=== PATIENT | female | born 1960 | race Caucasian/White ===

== ENCOUNTER 2024-12-16 12:10 | Inpatient (IN) | payer OTHER ==
[~2024-12-16] VITALS: Ht 167.6 cm; Wt 69.0 kg
[2024-12-16 12:35] LABS: COVID AG,FIA SOURCE NASAL SWAB
[2024-12-16 12:44] LABS: PLATELET COUNT (AUTO) 111 K/uL (150-450); RED BLOOD CELL COUNT(AUTO) 4.07 MIL/uL (4.00-5.20); RED CELL DISTRIBUTION WIDTH 18.5 % (11.5-14.5); WHITE BLOOD COUNT (AUTO) 4.5 K/uL (4.5-11.0)
[2024-12-16 12:53] LABS: CALCIUM, TOTAL 8.7 mg/dL (8.8-10.5); CREATININE 0.84 mg/dL (0.60-1.30); GLOMERULAR FILTR. RATE CALC > 60 mL/min (>60); GLUCOSE,RANDOM 68 mg/dL (70-110); SODIUM SERUM 137 mmol/L (136-145); UREA NITROGEN, BLOOD 26 mg/dL (7-18)
[2024-12-16] MEDS ORDERED: LEVO125 PO (12:59)
[2024-12-16] MEDS ORDERED: APIX5TAB PO (12:59)
[2024-12-16] MEDS ORDERED: SERT-158 PO (12:59)
[2024-12-16] MEDS ORDERED: ALEN70TA65 PO (12:59)
[2024-12-16] MEDS ORDERED: ASPI81TA87 PO (12:59)
[2024-12-16] MEDS ORDERED: HYDR-5256 PO (12:59)
[2024-12-16] MEDS ORDERED: OMEP-148 PO (12:59)
[2024-12-16] MEDS ORDERED: NITR0.4T50 SL (12:59)
[2024-12-16] MEDS ORDERED: HYDR200T83 PO (12:59)
[2024-12-16] MEDS ORDERED: TOPI-258 PO (12:59)
[2024-12-16] MEDS ORDERED: FURO20TA5 PO (12:59)
[2024-12-16] MEDS ORDERED: LEVE750T4 PO (12:59)
[2024-12-16] MEDS ORDERED: MYCO250C27 PO (12:59)
[2024-12-16] MEDS ORDERED: GABA-1216 PO (12:59)
[2024-12-16] MEDS ORDERED: VENL-67 PO (12:59)
[2024-12-16 13:08] LABS: SARS-COV2 (COVID) ANTIGEN,FIA Negative (Negative)
[2024-12-16] MEDS: POTASSIUM CHLORIDE 20 MEQ ER TABLET PO ONE (13:11)
[2024-12-16] MEDS ORDERED: ZOLPIDEM TARTRATE 10 MG TABLET PO PRN (13:45)
[2024-12-16] MEDS: LORazepam 2 MG/ML VIAL IM ONE (13:49)
[2024-12-16] MEDS: DEXTROSE 50%-WATER 25 GM/50 ML SYRINGE IVP ONE (15:14)
[2024-12-16] MEDS ORDERED: ETOMIDATE 2 MG/ML 10 ML VIAL ONE (15:38)
[2024-12-16] MEDS ORDERED: ROCURONIUM BROMIDE 10 MG/ML 5 ML VIAL ONE (15:39)
[2024-12-16 16:00] VITALS: PULSE 100; RESP 24; O2SAT 89
[2024-12-16 16:08] LABS: FRACTIONATED INSPIRED OXYGEN 100.0 % (21-100.0); SOURCE, BLOOD GAS ARTERIAL; TEMPERATURE, FAHRENHEIT, BG 98.1 FAHREN (96.0-98.6)
[2024-12-16 16:09] LABS: RED BLOOD CELL COUNT(AUTO) 4.07 MIL/uL (4.00-5.20); RED CELL DISTRIBUTION WIDTH 18.9 % (11.5-14.5); WHITE BLOOD COUNT (AUTO) 4.3 K/uL (4.5-11.0)
[2024-12-16 16:10] LABS: PLATELET COUNT (AUTO) 93 K/uL (150-450)
[2024-12-16 16:15] LABS: APPEARANCE,URINE CLEAR (CLEAR); GLUCOSE, URINE (UA) NEGATIVE (NEGATIVE); LEUKOCYTE ESTERASE ,URINE MODERATE (NEGATIVE); NITRATE,URINE NEGATIVE (NEGATIVE); OCCULT BLOOD,URINE NEGATIVE (NEGATIVE); PH,URINE DRUG SCREEN 5.5 (5.0-8.0); SPECIFIC GRAVITIY, URINE 1.011 (1.003-1.030)
[2024-12-16 16:16] LABS: ABG BASE EXCESS -5.8 mmol/L (-2.0-3.0); ABG CARBOXYHEMOGLOBIN 0.2 % (0.5-1.5); ABG HCO3 20.3 mmol/L (21.0-28.0); ABG METHEMOGLOBIN 0.8 % (0.0-1.5); ABG OXYGEN CONTENT 16.8 mL/dL (15.0-23.0); ABG OXYGEN SATURATION 99.3 % (94.0-98.0); ABG OXYHEMOGLOBIN 98.3 % (94.0-98.0); ABG PCO2 34 mmHg (32.0-45.0); ABG PH 7.370 (7.350-7.450); ABG TOTAL HEMOGLOBIN 11.9 G/dL (12.0-16.0); PO2, ARTERIAL BG 158.8 mmHg (83.0-108.0)
[2024-12-16 16:17] LABS: ALLEN TEST, BLOOD GAS POS; O2 DEVICE,BLOOD GAS VENTILATOR (ROOM AIR); SITE, BLOOD GAS LFT RADIAL; VT, ABG 380 ml
[2024-12-16 16:17] LABS: CALCIUM, TOTAL 8.6 mg/dL (8.8-10.5); CREATININE 0.68 mg/dL (0.60-1.30); GLOMERULAR FILTR. RATE CALC > 60 mL/min (>60); GLUCOSE,RANDOM 145 mg/dL (70-110); SODIUM SERUM 135 mmol/L (136-145); UREA NITROGEN, BLOOD 28 mg/dL (7-18)
[2024-12-16 16:18] LABS: PATIENT RATE, BG 20.0 min.; PEEP,BG 5 cm H2O; SET RATE, BG 20.0 min.
[2024-12-16] MEDS ORDERED: IOHEXOL 350 MG/ML 100 ML VIAL ONE (16:19)
[2024-12-16] MEDS ORDERED: SODIUM CHLORIDE 0.9% 100 ML ONE (16:19)
[2024-12-16] MEDS ORDERED: 0.9% SODIUM CHLORIDE 10 ML SYRINGE IVP ONE (16:19)
[2024-12-16 16:20] VITALS: PULSE 100; RESP 20; O2SAT 92
[2024-12-16 16:24] LABS: PHOSPHORUS 4.5 mg/dL (2.5-4.9); TROPONIN I-HIGH SENSITIVITY 88 ng/L (<51)
[2024-12-16 16:25] LABS: ALCOHOL, URINE DRUG SCREEN POSITIVE (NEGATIVE); AMPHET/METH SCREEN,URINE NEGATIVE (NEGATIVE); BARBITURATE SCREEN, URINE NEGATIVE (NEGATIVE); CANNABINOID SCREEN,URINE NEGATIVE (NEGATIVE); COCAINE SCREEN,URINE NEGATIVE (NEGATIVE); METHADONE SCREEN, URINE NEGATIVE (NEGATIVE)
[2024-12-16 16:26] LABS: GLUCOMETER DEV NAME(LOC) ER.7; GLUCOSE,POINT OF CARE 98 MG/DL (70-110)
[2024-12-16 16:31] LABS: ASPARTATE AMINOTRANSFERASE 61.0 U/L (15-37); CREATINE KINASE, TOTAL ONLY 349.0 U/L (26-192); TOTAL PROTEIN, SERUM 7.4 g/dL (6.4-8.2)
[2024-12-16 17:01] LABS: SQUAMOUS EPITHELIAL CELL,UR Rare /LPF (None Seen)
[2024-12-16] MEDS ORDERED: ALBUTEROL SULFATE 2.5 MG/0.5 ML NEB SOLUTION NEB PRN (17:15)
[2024-12-16] MEDS ORDERED: MAGNESIUM OXIDE 400 MG TABLET PO PRN (17:15)
[2024-12-16] MEDS ORDERED: MAGNESIUM SULFATE 4 GM/WATER 100 ML IV PRN (17:15)
[2024-12-16] MEDS ORDERED: MAGNESIUM SULFATE 2 GM/WATER 50 ML IV PRN (17:15)
[2024-12-16] MEDS ORDERED: ONDANSETRON HCL 4 MG/2 ML VIAL IVP PRN (17:15)
[2024-12-16] MEDS ORDERED: IPRATROPIUM BROMIDE 0.5 MG/2.5 ML NEB SOLUTION NEB PRN (17:15)
[2024-12-16] MEDS ORDERED: 0.9% SODIUM CHLORIDE 10 ML SYRINGE IVP PRN (17:30)
[2024-12-16 17:40] VITALS: PULSE 90; RESP 26; O2SAT 89
[2024-12-16 17:48] LABS: TROPONIN I-HIGH SENSITIVITY 75 ng/L (<51)
[2024-12-16 17:49] LABS: GLUCOSE,RANDOM 139 mg/dL (70-110); LACTATE DEHYDROGENASE 432 U/L (81-234)
[2024-12-16 17:50] LABS: LACTIC ACID 4.1 mmol/L (0.4-2.0)
[2024-12-16] MEDS: FentaNYL CIT 1000MCG/0.9% NACL 100 ML IV PRN (18:00)
[2024-12-16] MEDS: PROPOFOL 1000 MG/ISO-OSM 100 ML IV PRN (18:00)
[2024-12-16] MEDS: RINGERS LACTATED IV ONE (18:14)
[2024-12-16] MEDS: PIPERACILLIN/TAZO 3.375 GM/D5W 50 ML IV ONE (18:16)
[2024-12-16] MEDS: VANCOMYCIN 1.25 GM/WATER(PEG) 250 ML IV ONE (18:20)
[2024-12-16 18:31] LABS: ABG BASE EXCESS -1.2 mmol/L (-2.0-3.0); ABG CARBOXYHEMOGLOBIN 0.1 % (0.5-1.5); ABG HCO3 23.6 mmol/L (21.0-28.0); ABG METHEMOGLOBIN 1.0 % (0.0-1.5); ABG OXYGEN CONTENT 16.1 mL/dL (15.0-23.0); ABG OXYGEN SATURATION 99.7 % (94.0-98.0); ABG OXYHEMOGLOBIN 98.6 % (94.0-98.0); ABG PCO2 39 mmHg (32.0-45.0); ABG PH 7.396 (7.350-7.450); ABG TOTAL HEMOGLOBIN 11.3 G/dL (12.0-16.0); FRACTIONATED INSPIRED OXYGEN 100.0 % (21-100.0); PO2, ARTERIAL BG 204.6 mmHg (83.0-108.0); SOURCE, BLOOD GAS ARTERIAL; TEMPERATURE, FAHRENHEIT, BG 98.0 FAHREN (96.0-98.6)
[2024-12-16 18:52] LABS: ALLEN TEST, BLOOD GAS Positive; O2 DEVICE,BLOOD GAS VENTILATOR (ROOM AIR); PEEP,BG 8 cm H2O; SET RATE, BG 26.0 min.; SITE, BLOOD GAS RT RADIAL; VT, ABG 380 ml
[2024-12-16 18:53] LABS: PATIENT RATE, BG 26.0 min.
[2024-12-16 18:55] VITALS: PULSE 70; RESP 26; O2SAT 91
[2024-12-16] MEDS: SILDENAFIL CITRATE 20 MG TABLET NG SCH (20:05)
[2024-12-16] MEDS: CefTRIAXone 1 GM/DEXTROSE 50 ML IV SCH (20:05)
[2024-12-16] MEDS: DOCUSATE SODIUM 100 MG CAPSULE PO SCH (20:12)
[2024-12-16 20:22] LABS: ABG BASE EXCESS -3.1 mmol/L (-2.0-3.0); ABG CARBOXYHEMOGLOBIN 0.3 % (0.5-1.5); ABG HCO3 22.4 mmol/L (21.0-28.0); ABG METHEMOGLOBIN 0.9 % (0.0-1.5); ABG OXYGEN CONTENT 16.5 mL/dL (15.0-23.0); ABG OXYGEN SATURATION 99.7 % (94.0-98.0); ABG OXYHEMOGLOBIN 98.5 % (94.0-98.0); ABG PCO2 33 mmHg (32.0-45.0); ABG PH 7.431 (7.350-7.450); ABG TOTAL HEMOGLOBIN 11.1 G/dL (12.0-16.0); FRACTIONATED INSPIRED OXYGEN 100.0 % (21-100.0); SOURCE, BLOOD GAS ARTERIAL; TEMPERATURE, FAHRENHEIT, BG 97.7 FAHREN (96.0-98.6)
[2024-12-16 20:23] LABS: ALLEN TEST, BLOOD GAS Positive; O2 DEVICE,BLOOD GAS VENTILATOR (ROOM AIR); PATIENT RATE, BG 26.0 min.; PEEP,BG 10 cm H2O; PO2, ARTERIAL BG 396.7 mmHg (83.0-108.0); SET RATE, BG 26.0 min.; SITE, BLOOD GAS LFT RADIAL; SPONTANEOUS VT, BG 394 ml; VT, ABG 380 ml
[2024-12-16] MEDS: DOXYCYCLINE HYCLATE 100 MG in DEXTROSE 5%-WATER 100 ML IV SCH (20:28)
[2024-12-16] MEDS: POTASSIUM CHLORIDE 20 MEQ ER TABLET PO PRN (20:28)
[2024-12-16] MEDS: CHLORHEXIDINE GLUCONATE 2% TOWELETTE [2'S/6'S] TP SCH (22:03)
[2024-12-16 22:10] VITALS: PULSE 70; RESP 26; O2SAT 96
[2024-12-16] MEDS ORDERED: NITROGLYCERIN 0.4 MG SUBLINGUAL TABLET #25 SL PRN (22:45)
[2024-12-16] MEDS ORDERED: [UNRECOGNIZED DRUG - OTHER] GT SCH (22:45)
[2024-12-16 22:50] LABS: ABG BASE EXCESS -2.2 mmol/L (-2.0-3.0); ABG CARBOXYHEMOGLOBIN 0.2 % (0.5-1.5); ABG HCO3 23.1 mmol/L (21.0-28.0); ABG METHEMOGLOBIN 0.0 % (0.0-1.5); ABG OXYGEN CONTENT 15.2 mL/dL (15.0-23.0); ABG OXYGEN SATURATION 96.6 % (94.0-98.0); ABG OXYHEMOGLOBIN 96.4 % (94.0-98.0); ABG PCO2 33 mmHg (32.0-45.0); ABG PH 7.444 (7.350-7.450); ABG TOTAL HEMOGLOBIN 11.1 G/dL (12.0-16.0); ALLEN TEST, BLOOD GAS Positive; FRACTIONATED INSPIRED OXYGEN 80.0 % (21-100.0); O2 DEVICE,BLOOD GAS VENTILATOR (ROOM AIR); PATIENT RATE, BG 26.0 min.; PEEP,BG 5 cm H2O; PO2, ARTERIAL BG 92.0 mmHg (83.0-108.0); SET RATE, BG 26.0 min.; SITE, BLOOD GAS RT RADIAL; SOURCE, BLOOD GAS ARTERIAL; TEMPERATURE, FAHRENHEIT, BG 97.7 FAHREN (96.0-98.6); VT, ABG 380 ml
[2024-12-17] VITALS (14 sets, daily range): BP systolic 89–132; BP diastolic 59–82; PULSE 70; RESP 26; TEMP 97.4–99.3; O2SAT 80–100
[2024-12-17] MEDS: HEPARIN SODIUM,PORCINE 5,000 UNITS/ML VIAL SQ SCH (00:59)
[2024-12-17] MEDS ORDERED: SODIUM CHLORIDE 0.9% 250 ML IV ONE ×2 (02:02→18:38)
[2024-12-17] MEDS: POTASSIUM CHL 10 MEQ/WATER 50 ML IV PRN (02:03)
[2024-12-17 06:59] LABS: PLATELET COUNT (AUTO) 96 K/uL (150-450); RED BLOOD CELL COUNT(AUTO) 3.89 MIL/uL (4.00-5.20); RED CELL DISTRIBUTION WIDTH 19.0 % (11.5-14.5); WHITE BLOOD COUNT (AUTO) 5.3 K/uL (4.5-11.0)
[2024-12-17] MEDS: LEVOTHYROXINE SODIUM 125 MCG TABLET GT SCH (07:01)
[2024-12-17] MEDS: ASPIRIN 81 MG DR TABLET GT SCH (08:09)
[2024-12-17] MEDS: TOPIRAMATE 100 MG TABLET PO SCH (08:10)
[2024-12-17] MEDS: HYDROXYCHLOROQUINE SULFATE 200 MG TABLET GT SCH (08:10)
[2024-12-17] MEDS: APIXABAN 5 MG TABLET GT SCH (08:10)
[2024-12-17] MEDS: GABAPENTIN 100 MG CAPSULE GT SCH (08:10)
[2024-12-17] MEDS: FUROSEMIDE 20 MG TABLET GT SCH (08:11)
[2024-12-17] MEDS: ETHYL ALCOHOL 62% ANTISEPTIC NASAL SANITIZER 0.6 ML AMPUL NASAL SCH (08:12)
[2024-12-17 08:19] LABS: ASPARTATE AMINOTRANSFERASE 54 U/L (15-37); CALCIUM, TOTAL 8.4 mg/dL (8.8-10.5); CHOL/HDL RATIO 1.7 (3.9-5.7); CREATININE 0.55 mg/dL (0.60-1.30); GLOMERULAR FILTR. RATE CALC > 60 mL/min (>60); LDL CHOL (CALC.) 54 mg/dL (0-130); SODIUM SERUM 136 mmol/L (136-145); TOTAL PROTEIN, SERUM 6.7 g/dL (6.4-8.2); UREA NITROGEN, BLOOD 22 mg/dL (7-18)
[2024-12-17 08:27] LABS: GLUCOSE,RANDOM 70 mg/dL (70-110)
[2024-12-17] MEDS: ALBUMIN HUMAN 25%-50GM/200ML 200 ML IV ONE (11:14)
[2024-12-17] MEDS: PERFLUTREN PROTEIN-A MICROSPHERES 0.22 MG/ML 3 ML VIAL IVP ONE (11:14)
[2024-12-17] MEDS: LevETIRAcetam 100 MG/ML 5 ML SOLUTION UDCUP GT SCH (11:20)
[2024-12-17] MEDS: PROPOFOL 1000 MG/ISO-OSM 100 ML IV PRN (12:29)
[2024-12-17 14:46] LABS: GLUCOMETER DEV NAME(LOC) ICUN.6; GLUCOSE,POINT OF CARE 84 MG/DL (70-110)
[2024-12-17 17:24] LABS: ABG BASE EXCESS -1.5 mmol/L (-2.0-3.0); ABG CARBOXYHEMOGLOBIN 0.2 % (0.5-1.5); ABG HCO3 23.4 mmol/L (21.0-28.0); ABG METHEMOGLOBIN 0.0 % (0.0-1.5); ABG OXYGEN CONTENT 15.4 mL/dL (15.0-23.0); ABG OXYGEN SATURATION 98.3 % (94.0-98.0); ABG OXYHEMOGLOBIN 98.1 % (94.0-98.0); ABG PCO2 40 mmHg (32.0-45.0); ABG PH 7.389 (7.350-7.450); ABG TOTAL HEMOGLOBIN 11.0 G/dL (12.0-16.0); FRACTIONATED INSPIRED OXYGEN 80.0 % (21-100.0); PO2, ARTERIAL BG 125.0 mmHg (83.0-108.0); SOURCE, BLOOD GAS ARTERIAL; TEMPERATURE, FAHRENHEIT, BG 99.3 FAHREN (96.0-98.6)
[2024-12-17 17:25] LABS: ABG A-A DIFF O2 402.9 mmHg (10-20.0); O2 DEVICE,BLOOD GAS VENTILATOR (ROOM AIR); SITE, BLOOD GAS RT BRACHIAL
[2024-12-17 17:26] LABS: PATIENT RATE, BG 26.0 min.; PEEP,BG 8 cm H2O; SET RATE, BG 26.0 min.; VT, ABG 380 ml
[2024-12-17 19:21] LABS: GLUCOMETER DEV NAME(LOC) ICU.S7; GLUCOSE,POINT OF CARE 84 MG/DL (70-110)
[2024-12-17] MEDS: DOCUSATE SODIUM 100 MG/10 ML LIQUID UDCUP NG SCH (20:13)
[2024-12-18] VITALS (15 sets, daily range): BP systolic 88–107; BP diastolic 58–74; PULSE 67–72; RESP 16–26; TEMP 98.1–99.3; O2SAT 90–99
[2024-12-18 06:56] LABS: PLATELET COUNT (AUTO) 92 K/uL (150-450); RED BLOOD CELL COUNT(AUTO) 3.59 MIL/uL (4.00-5.20); RED CELL DISTRIBUTION WIDTH 19.0 % (11.5-14.5); WHITE BLOOD COUNT (AUTO) 4.1 K/uL (4.5-11.0)
[2024-12-18 07:27] LABS: CALCIUM, TOTAL 8.4 mg/dL (8.8-10.5); CREATININE 0.76 mg/dL (0.60-1.30); GLOMERULAR FILTR. RATE CALC > 60 mL/min (>60); GLUCOSE,RANDOM 82 mg/dL (70-110); SODIUM SERUM 136 mmol/L (136-145); UREA NITROGEN, BLOOD 17 mg/dL (7-18)
[2024-12-18] MEDS: NOREPINEPHRINE 8 MG/0.9 % NACL 250 ML IV PRN (07:56)
[2024-12-18 16:00] LABS: ABG BASE EXCESS -3.6 mmol/L (-2.0-3.0); ABG CARBOXYHEMOGLOBIN 0.3 % (0.5-1.5); ABG HCO3 21.5 mmol/L (21.0-28.0); ABG METHEMOGLOBIN 0.3 % (0.0-1.5); ABG OXYGEN CONTENT 15.0 mL/dL (15.0-23.0); ABG OXYGEN SATURATION 93.6 % (94.0-98.0); ABG OXYHEMOGLOBIN 93.0 % (94.0-98.0); ABG PCO2 42 mmHg (32.0-45.0); ABG PH 7.338 (7.350-7.450); ABG TOTAL HEMOGLOBIN 11.4 G/dL (12.0-16.0); FRACTIONATED INSPIRED OXYGEN 50.0 % (21-100.0); PO2, ARTERIAL BG 75.3 mmHg (83.0-108.0); SOURCE, BLOOD GAS ARTERIAL; TEMPERATURE, FAHRENHEIT, BG 98.2 FAHREN (96.0-98.6)
[2024-12-18 16:01] LABS: ABG A-A DIFF O2 234.0 mmHg (10-20.0); ALLEN TEST, BLOOD GAS Positive; SITE, BLOOD GAS RT RADIAL
[2024-12-18 16:02] LABS: O2 DEVICE,BLOOD GAS VENTILATOR (ROOM AIR); PATIENT RATE, BG 12.0 min.; PEEP,BG 5 cm H2O; PRESSURE SUPPORT, BG 5 cm H2O; VENT MODE, BG CPAP (ROOM AIR)
[2024-12-18 16:03] LABS: SPONTANEOUS VT, BG 467 ml
[2024-12-18] MEDS: PANTOPRAZOLE SODIUM 40 MG/VIAL IVP SCH (18:58)
[2024-12-18] MEDS ORDERED: SODIUM CHLORIDE 0.9% 250 ML IV ONE (23:38)
[2024-12-19] VITALS (10 sets, daily range): BP systolic 97–114; BP diastolic 61–72; PULSE 66–72; RESP 13–40; TEMP 97.4–99.9; O2SAT 82–96
[2024-12-19 06:15] LABS: PLATELET COUNT (AUTO) 104 K/uL (150-450); RED BLOOD CELL COUNT(AUTO) 3.55 MIL/uL (4.00-5.20); RED CELL DISTRIBUTION WIDTH 19.1 % (11.5-14.5); WHITE BLOOD COUNT (AUTO) 5.6 K/uL (4.5-11.0)
[2024-12-19 06:25] LABS: CALCIUM, TOTAL 8.4 mg/dL (8.8-10.5); CREATININE 0.55 mg/dL (0.60-1.30); GLOMERULAR FILTR. RATE CALC > 60 mL/min (>60); GLUCOSE,RANDOM 88 mg/dL (70-110); SODIUM SERUM 137 mmol/L (136-145); UREA NITROGEN, BLOOD 16 mg/dL (7-18)
[2024-12-19 08:23] LABS: BAND NEUTROPHILS % (MANUAL) 5 % (0-5); LYMPHOCYTES % (MANUAL) 34 % (22-44); MONOCYTES % (MANUAL) 3 % (2-9); SEGMENTED NEUTROPHILS % 58 % (40-70)
[2024-12-19 08:28] LABS: RBC MORPHOLOGY COMMENT NORMAL RBC MORPH
[2024-12-19 10:22] LABS: ABG A-A DIFF O2 210.7 mmHg (10-20.0); ABG BASE EXCESS -5.2 mmol/L (-2.0-3.0); ABG CARBOXYHEMOGLOBIN 0.3 % (0.5-1.5); ABG HCO3 20.3 mmol/L (21.0-28.0); ABG METHEMOGLOBIN 0.0 % (0.0-1.5); ABG OXYGEN CONTENT 14.9 mL/dL (15.0-23.0); ABG OXYGEN SATURATION 96.3 % (94.0-98.0); ABG OXYHEMOGLOBIN 96.0 % (94.0-98.0); ABG PCO2 44 mmHg (32.0-45.0); ABG PH 7.302 (7.350-7.450); ABG TOTAL HEMOGLOBIN 10.9 G/dL (12.0-16.0); ALLEN TEST, BLOOD GAS Positive; FRACTIONATED INSPIRED OXYGEN 50.0 % (21-100.0); O2 DEVICE,BLOOD GAS VENTILATOR (ROOM AIR); PO2, ARTERIAL BG 96.7 mmHg (83.0-108.0); SITE, BLOOD GAS RT RADIAL; SOURCE, BLOOD GAS ARTERIAL; TEMPERATURE, FAHRENHEIT, BG 98.2 FAHREN (96.0-98.6)
[2024-12-19 10:23] LABS: PATIENT RATE, BG 16.0 min.; PEEP,BG 5 cm H2O; PRESSURE SUPPORT, BG 5 cm H2O; SPONTANEOUS VT, BG 609 ml; VENT MODE, BG Press. Support Vent. (ROOM AIR)
[2024-12-19] MEDS: SODIUM BICARBONATE [ADULT] 8.4% 50 MEQ/50 ML SYRINGE IVP ONE (12:52)
[2024-12-19] MEDS ORDERED: SODIUM CHLORIDE 0.9% 250 ML IV ONE (20:07)
[2024-12-19] MEDS: ACETAMINOPHEN 325 MG TABLET PO PRN (20:11)
[2024-12-20] VITALS: BP 98/68; PULSE 70; RESP 20; TEMP 98.9; O2SAT 89
[2024-12-20 04:00] VITALS: BP 149/58; PULSE 70; RESP 20; TEMP 99; O2SAT 89
[2024-12-20 05:50] LABS: PLATELET COUNT (AUTO) 92 K/uL (150-450); RED BLOOD CELL COUNT(AUTO) 3.42 MIL/uL (4.00-5.20); RED CELL DISTRIBUTION WIDTH 19.0 % (11.5-14.5); WHITE BLOOD COUNT (AUTO) 4.2 K/uL (4.5-11.0)
[2024-12-20 06:14] LABS: ASPARTATE AMINOTRANSFERASE 43 U/L (15-37); CALCIUM, TOTAL 8.2 mg/dL (8.8-10.5); CREATININE 0.58 mg/dL (0.60-1.30); GLOMERULAR FILTR. RATE CALC > 60 mL/min (>60); GLUCOSE,RANDOM 83 mg/dL (70-110); SODIUM SERUM 134 mmol/L (136-145); TOTAL PROTEIN, SERUM 6.3 g/dL (6.4-8.2); UREA NITROGEN, BLOOD 19 mg/dL (7-18)
[2024-12-20 08:00] VITALS: BP 100/60; PULSE 70; RESP 12; TEMP 99; O2SAT 90
[2024-12-20] MEDS ORDERED: DOCUSATE SODIUM 100 MG/10 ML LIQUID UDCUP PO SCH (09:00)
[2024-12-20] MEDS: DOCUSATE SODIUM 100 MG CAPSULE PO SCH (10:11)
[2024-12-20 12:00] VITALS: BP 96/65; PULSE 70; RESP 14; TEMP 99.1; O2SAT 98
[2024-12-20 16:00] VITALS: BP 107/63; PULSE 70; RESP 13; TEMP 98.4; O2SAT 100
[2024-12-20 20:00] VITALS: BP 105/75; PULSE 72; RESP 20; TEMP 98.9; O2SAT 100
[2024-12-20] MEDS: LITHIUM CARBONATE 300 MG CAPSULE PO SCH (20:20)
[2024-12-21] VITALS: BP 109/76; PULSE 71; RESP 19; TEMP 98.8; O2SAT 100
[2024-12-21 04:00] VITALS: BP 106/78; PULSE 74; RESP 19; TEMP 98.8; O2SAT 98
[2024-12-21 06:31] LABS: PLATELET COUNT (AUTO) 108 K/uL (150-450); RED BLOOD CELL COUNT(AUTO) 3.64 MIL/uL (4.00-5.20); RED CELL DISTRIBUTION WIDTH 19.0 % (11.5-14.5); WHITE BLOOD COUNT (AUTO) 5.7 K/uL (4.5-11.0)
[2024-12-21 06:49] LABS: ASPARTATE AMINOTRANSFERASE 48 U/L (15-37); CALCIUM, TOTAL 8.4 mg/dL (8.8-10.5); CREATININE 0.64 mg/dL (0.60-1.30); GLOMERULAR FILTR. RATE CALC > 60 mL/min (>60); GLUCOSE,RANDOM 103 mg/dL (70-110); SODIUM SERUM 133 mmol/L (136-145); TOTAL PROTEIN, SERUM 6.5 g/dL (6.4-8.2); UREA NITROGEN, BLOOD 20 mg/dL (7-18)
[2024-12-21 08:00] VITALS: BP 117/75; PULSE 71; RESP 17; TEMP 98.6
[2024-12-21 11:30] LABS: ABG BASE EXCESS -3.2 mmol/L (-2.0-3.0); ABG CARBOXYHEMOGLOBIN 0.1 % (0.5-1.5); ABG HCO3 22.3 mmol/L (21.0-28.0); ABG METHEMOGLOBIN 0.3 % (0.0-1.5); ABG OXYGEN CONTENT 15.5 mL/dL (15.0-23.0); ABG OXYGEN SATURATION 99.1 % (94.0-98.0); ABG OXYHEMOGLOBIN 98.7 % (94.0-98.0); ABG PCO2 34 mmHg (32.0-45.0); ABG PH 7.421 (7.350-7.450); ABG TOTAL HEMOGLOBIN 10.9 G/dL (12.0-16.0); FRACTIONATED INSPIRED OXYGEN 60.0 % (21-100.0); PO2, ARTERIAL BG 154.5 mmHg (83.0-108.0); SOURCE, BLOOD GAS ARTERIAL; TEMPERATURE, FAHRENHEIT, BG 97.6 FAHREN (96.0-98.6)
[2024-12-21 11:31] LABS: ABG A-A DIFF O2 237.3 mmHg (10-20.0); ALLEN TEST, BLOOD GAS Positive; FLOW, BLOOD GAS 10.00 L/min (0.00-15.00); O2 DEVICE,BLOOD GAS OXYMIZER (ROOM AIR); PATIENT RATE, BG 15.0 min.; SITE, BLOOD GAS LFT RADIAL
[2024-12-21 12:00] VITALS: BP 124/91; PULSE 75; RESP 18; TEMP 97.6
[2024-12-21 16:00] VITALS: BP 140/74; PULSE 72; RESP 14; TEMP 98
[2024-12-21] MEDS: FUROSEMIDE 20 MG/2 ML VIAL IVP ONE (18:57)
[2024-12-21 20:00] VITALS: BP 134/89; PULSE 75; RESP 19; TEMP 97.8
[2024-12-22] VITALS (7 sets, daily range): BP systolic 97–132; BP diastolic 59–89; PULSE 71–92; RESP 13–24; TEMP 97–98.6; O2SAT 88–98
[2024-12-22 05:48] LABS: CALCIUM, TOTAL 8.6 mg/dL (8.8-10.5); CREATININE 0.43 mg/dL (0.60-1.30); GLOMERULAR FILTR. RATE CALC > 60 mL/min (>60); GLUCOSE,RANDOM 85 mg/dL (70-110); SODIUM SERUM 134 mmol/L (136-145); UREA NITROGEN, BLOOD 20 mg/dL (7-18)
[2024-12-22 05:50] LABS: RED BLOOD CELL COUNT(AUTO) 3.51 MIL/uL (4.00-5.20); RED CELL DISTRIBUTION WIDTH 19.0 % (11.5-14.5); WHITE BLOOD COUNT (AUTO) 5.2 K/uL (4.5-11.0)
[2024-12-22 07:03] LABS: PLATELET COUNT (AUTO) 71 K/uL (150-450)
[2024-12-22] MEDS: FUROSEMIDE 20 MG/2 ML VIAL IVP SCH (08:41)
[2024-12-23 04:38] VITALS: BP 106/64; PULSE 73; RESP 18; TEMP 97.5; O2SAT 90
[2024-12-23] MEDS: ALENDRONATE SODIUM 70 MG TABLET GT SCH (05:49)
[2024-12-23 07:31] VITALS: BP 100/63; PULSE 70; RESP 18; TEMP 97.6; O2SAT 96
[2024-12-23] MEDS ORDERED: SODIUM CHLORIDE 0.9% 250 ML IV ONE (10:36)
[2024-12-23 12:19] VITALS: BP 104/69; PULSE 70; RESP 18; TEMP 97.6; O2SAT 86
[2024-12-23 12:44] VITALS: O2SAT 95
[2024-12-23 16:37] VITALS: BP 106/67; PULSE 70; RESP 19; TEMP 97.6; O2SAT 96
[2024-12-23 20:00] VITALS: BP 102/80; PULSE 87; RESP 20; TEMP 98.4; O2SAT 96
[2024-12-24] VITALS (10 sets, daily range): BP systolic 103–124; BP diastolic 57–82; PULSE 70–90; RESP 18–20; TEMP 97.7–98.6; O2SAT 94–100
[2024-12-24 07:22] LABS: PLATELET COUNT (AUTO) 139 K/uL (150-450); RED BLOOD CELL COUNT(AUTO) 3.94 MIL/uL (4.00-5.20); RED CELL DISTRIBUTION WIDTH 19.0 % (11.5-14.5); WHITE BLOOD COUNT (AUTO) 6.0 K/uL (4.5-11.0)
[2024-12-24 07:32] LABS: CALCIUM, TOTAL 9.0 mg/dL (8.8-10.5); CREATININE 0.89 mg/dL (0.60-1.30); GLOMERULAR FILTR. RATE CALC > 60 mL/min (>60); GLUCOSE,RANDOM 71 mg/dL (70-110); SODIUM SERUM 137 mmol/L (136-145); UREA NITROGEN, BLOOD 21 mg/dL (7-18)
[2024-12-24] MEDS: ALBUTEROL SULFATE 2.5 MG/0.5 ML NEB SOLUTION NEB SCH (14:31)
[2024-12-24] MEDS: IPRATROPIUM BROMIDE 0.5 MG/2.5 ML NEB SOLUTION NEB SCH (14:31)
[2024-12-25] VITALS (9 sets, daily range): BP systolic 92–132; BP diastolic 54–80; PULSE 69–86; RESP 18–20; TEMP 97.5–98.6; O2SAT 92–100
[2024-12-25 06:26] LABS: PLATELET COUNT (AUTO) 151 K/uL (150-450); RED BLOOD CELL COUNT(AUTO) 3.66 MIL/uL (4.00-5.20); RED CELL DISTRIBUTION WIDTH 18.6 % (11.5-14.5); WHITE BLOOD COUNT (AUTO) 6.3 K/uL (4.5-11.0)
[2024-12-25 06:41] LABS: CALCIUM, TOTAL 9.0 mg/dL (8.8-10.5); CREATININE 0.71 mg/dL (0.60-1.30); GLOMERULAR FILTR. RATE CALC > 60 mL/min (>60); GLUCOSE,RANDOM 83 mg/dL (70-110); SODIUM SERUM 138 mmol/L (136-145); UREA NITROGEN, BLOOD 23 mg/dL (7-18)
[2024-12-26] VITALS (7 sets, daily range): BP systolic 94–134; BP diastolic 55–90; PULSE 69–89; RESP 17–20; TEMP 97.7–98.8; O2SAT 93–97
[2024-12-26 06:31] LABS: PLATELET COUNT (AUTO) 190 K/uL (150-450); RED BLOOD CELL COUNT(AUTO) 4.09 MIL/uL (4.00-5.20); RED CELL DISTRIBUTION WIDTH 18.5 % (11.5-14.5); WHITE BLOOD COUNT (AUTO) 7.5 K/uL (4.5-11.0)
[2024-12-26 06:48] LABS: CREATININE 0.72 mg/dL (0.60-1.30); GLOMERULAR FILTR. RATE CALC > 60 mL/min (>60); GLUCOSE,RANDOM 91 mg/dL (70-110); SODIUM SERUM 137 mmol/L (136-145); UREA NITROGEN, BLOOD 27 mg/dL (7-18)
[2024-12-26 06:53] LABS: CALCIUM, TOTAL 9.0 mg/dL (8.8-10.5)
[2024-12-27 04:02] VITALS: BP 107/62; PULSE 73; RESP 18; TEMP 98.6; O2SAT 97
[2024-12-27 06:41] LABS: PLATELET COUNT (AUTO) 192 K/uL (150-450); RED BLOOD CELL COUNT(AUTO) 4.30 MIL/uL (4.00-5.20); RED CELL DISTRIBUTION WIDTH 18.8 % (11.5-14.5); WHITE BLOOD COUNT (AUTO) 5.9 K/uL (4.5-11.0)
[2024-12-27 06:53] LABS: CALCIUM, TOTAL 9.1 mg/dL (8.8-10.5); CREATININE 0.67 mg/dL (0.60-1.30); GLOMERULAR FILTR. RATE CALC > 60 mL/min (>60); GLUCOSE,RANDOM 104 mg/dL (70-110); SODIUM SERUM 137 mmol/L (136-145); UREA NITROGEN, BLOOD 21 mg/dL (7-18)
[2024-12-27 10:20] VITALS: BP 130/77; PULSE 76; RESP 18; TEMP 97.9; O2SAT 94
[2024-12-27] MEDS ORDERED: SILD20TA42 NG (11:21)
[2024-12-27] MEDS ORDERED: LITH300C3 PO (11:21)
[2024-12-27 12:11] VITALS: BP 113/76; PULSE 87; RESP 17; TEMP 98.4; O2SAT 99
== END 2024-12-27 16:20 | disposition home or self-care (01) | DRG 208 ==
LOC: EMS 12:10 → EDBEDREQ 16:27 → EDH 17:14 → ICU 21:07 → 5N 12-22 22:18
PROVIDERS: ADMIT Internal Medicine; ATTEND Internal Medicine
PROC: 5A1945Z Respiratory Ventilation, 24-96 Consecutive Hours (ICD-10-PCS; principal; 2024-12-16)
PROC: 0BH17EZ Insertion of Endotracheal Airway into Trachea, Via Natural or Artificial Opening (ICD-10-PCS; 2024-12-16)
DX: J96.21 Acute and chronic respiratory failure with hypoxia (principal); I50.33 Acute on chronic diastolic (congestive) heart failure; J18.9 Pneumonia, unspecified organism; J44.1 Chronic obstructive pulmonary disease with (acute) exacerbation; R45.851 Suicidal ideations; J98.11 Atelectasis; I48.92 Unspecified atrial flutter; D84.9 Immunodeficiency, unspecified; J44.0 Chronic obstructive pulmonary disease with (acute) lower respiratory infection; Z20.822 Contact with and (suspected) exposure to COVID-19; I11.0 Hypertensive heart disease with heart failure; I48.0 Paroxysmal atrial fibrillation; F31.9 Bipolar disorder, unspecified; F41.0 Panic disorder [episodic paroxysmal anxiety]; I27.81 Cor pulmonale (chronic); I50.811 Acute right heart failure; I95.1 Orthostatic hypotension; E03.9 Hypothyroidism, unspecified; G40.909 Epilepsy, unspecified, not intractable, without status epilepticus; I36.1 Nonrheumatic tricuspid (valve) insufficiency; F10.929 Alcohol use, unspecified with intoxication, unspecified; Y90.9 Presence of alcohol in blood, level not specified; I95.9 Hypotension, unspecified; Z53.20 Procedure and treatment not carried out because of patient's decision for unspecified reasons; Z79.899 Other long term (current) drug therapy; Z91.018 Allergy to other foods; Z86.73 Personal history of transient ischemic attack (TIA), and cerebral infarction without residual deficits; Z95.0 Presence of cardiac pacemaker; Z79.60 Long term (current) use of unspecified immunomodulators and immunosuppressants
CPT/HCPCS: 70450; 71045; 74174; 74175; 80048; 80053; 80061; 80076; 80178; 80307; 81001; 82040; 82550; 82805; 82947; 82962; 83036; 83605; 83615; 83735; 83880; 84100; 84132; 84145; 84436; 84439; 84484; 85025; 85730; 87040; 87081; 87086; 92610; 93005; 93306; 94002; 94003; 94640; 94760; 96372; 96374; 97116; 97163; 97530; 99285; G0480; J0696; J1644; J1938; J2060; J2470; J2543; J2704; J3010; J3480; J3490; J7050; J7060; J7120; P9046; 36415-L1; 36415-TC; J7613

== ENCOUNTER 2025-01-04 13:35 | Inpatient (IN) | payer OTHER ==
[~2025-01-04] VITALS: Ht 167.6 cm; Wt 73.6 kg
[~2025-01-04 13:35] MED LIST: ALEN70TA65 PO; APIX5TAB PO; ASPI81TA87 PO; FURO20TA5 PO; GABA-1216 PO; HYDR-5256 PO; HYDR200T83 PO; LEVE750T4 PO; LEVO125 PO; LITH300C3 PO; MYCO250C27 PO; NITR0.4T50 SL; OMEP-148 PO; SERT-158 PO; SILD20TA42 NG; TOPI-258 PO; VENL-67 PO
[2025-01-04 14:41] LABS: CALCIUM, TOTAL 7.9 mg/dL (8.8-10.5); CREATININE 0.56 mg/dL (0.60-1.30); GLOMERULAR FILTR. RATE CALC > 60 mL/min (>60); GLUCOSE,RANDOM 89 mg/dL (70-110); SODIUM SERUM 130 mmol/L (136-145); UREA NITROGEN, BLOOD 18 mg/dL (7-18)
[2025-01-04 14:48] LABS: PLATELET COUNT (AUTO) 179 K/uL (150-450); RED BLOOD CELL COUNT(AUTO) 4.19 MIL/uL (4.00-5.20); RED CELL DISTRIBUTION WIDTH 18.9 % (11.5-14.5); WHITE BLOOD COUNT (AUTO) 6.3 K/uL (4.5-11.0)
[2025-01-04 14:52] LABS: LACTIC ACID 1.8 mmol/L (0.4-2.0); TROPONIN I-HIGH SENSITIVITY 33 ng/L (<51)
[2025-01-04 15:11] LABS: ALCOHOL, BLOOD (SERUM) 107 mg/dL (0-10)
[2025-01-04] MEDS: POTASSIUM CHL 10 MEQ/WATER 50 ML IV ONE ×2 (15:16→15:26)
[2025-01-04] MEDS ORDERED: NOREPINEPHRINE 8 MG/0.9 % NACL 250 ML IV ONE (15:36)
[2025-01-04 15:41] LABS: ABG BASE EXCESS -6.5 mmol/L (-2.0-3.0); ABG CARBOXYHEMOGLOBIN 0.7 % (0.5-1.5); ABG HCO3 20.2 mmol/L (21.0-28.0); ABG METHEMOGLOBIN 1.0 % (0.0-1.5); ABG OXYGEN CONTENT 16.5 mL/dL (15.0-23.0); ABG OXYGEN SATURATION 99.9 % (94.0-98.0); ABG OXYHEMOGLOBIN 98.2 % (94.0-98.0); ABG PCO2 28 mmHg (32.0-45.0); ABG PH 7.425 (7.350-7.450); ABG TOTAL HEMOGLOBIN 11.6 G/dL (12.0-16.0); FRACTIONATED INSPIRED OXYGEN 90.0 % (21-100.0); PO2, ARTERIAL BG 215.6 mmHg (83.0-108.0); SOURCE, BLOOD GAS ARTERIAL; TEMPERATURE, FAHRENHEIT, BG 98.3 FAHREN (96.0-98.6)
[2025-01-04 15:42] LABS: ABG A-A DIFF O2 397.9 mmHg (10-20.0); ALLEN TEST, BLOOD GAS Positive; FLOW, BLOOD GAS 15.00 L/min (0.00-15.00); SITE, BLOOD GAS LFT RADIAL
[2025-01-04] MEDS: NOREPINEPHRINE 8 MG/0.9 % NACL 250 ML IV PRN (15:46)
[2025-01-04 15:47] LABS: APPEARANCE,URINE CLEAR (CLEAR); GLUCOSE, URINE (UA) NEGATIVE (NEGATIVE); LEUKOCYTE ESTERASE ,URINE NEGATIVE (NEGATIVE); NITRATE,URINE NEGATIVE (NEGATIVE); OCCULT BLOOD,URINE NEGATIVE (NEGATIVE); PH,URINE DRUG SCREEN 6.0 (5.0-8.0); SPECIFIC GRAVITIY, URINE 1.005 (1.003-1.030)
[2025-01-04 15:56] LABS: ALCOHOL, URINE DRUG SCREEN POSITIVE (NEGATIVE); AMPHET/METH SCREEN,URINE NEGATIVE (NEGATIVE); BARBITURATE SCREEN, URINE NEGATIVE (NEGATIVE); CANNABINOID SCREEN,URINE NEGATIVE (NEGATIVE); COCAINE SCREEN,URINE NEGATIVE (NEGATIVE); METHADONE SCREEN, URINE NEGATIVE (NEGATIVE)
[2025-01-04 16:03] LABS: SQUAMOUS EPITHELIAL CELL,UR Rare /LPF (None Seen)
[2025-01-04] MEDS ORDERED: BISACODYL 10 MG RECTAL RECTAL SUPPOSITORY PR PRN (16:15)
[2025-01-04] MEDS ORDERED: MAGNESIUM HYDROXIDE SUSPENSION 30 ML UDCUP PO PRN (16:15)
[2025-01-04] MEDS ORDERED: SODIUM BICARBONATE 50 MEQ/50 ML VIAL IVP ONE (17:15)
[2025-01-04] MEDS: POTASSIUM CHL 10 MEQ/WATER 50 ML IV PRN (17:40)
[2025-01-04 17:44] LABS: O2 DEVICE,BLOOD GAS NON REBREATHER (ROOM AIR)
[2025-01-04] MEDS: ONDANSETRON HCL 4 MG/2 ML VIAL IVP PRN (17:57)
[2025-01-04] MEDS: SODIUM BICARBONATE [ADULT] 8.4% 50 MEQ/50 ML SYRINGE IVP ONE (18:13)
[2025-01-04] MEDS: MAGNESIUM SULFATE 2 GM, MVI, ADULT NO.1 WITH VIT K 10 ML, THIAMINE 100 MG, FOLIC ACID 1... IV ONE (18:14)
[2025-01-04] MEDS: LORazepam 2 MG/ML VIAL IVP PRN (18:30)
[2025-01-04 18:57] LABS: CALCIUM, TOTAL 7.5 mg/dL (8.8-10.5); CREATININE 0.77 mg/dL (0.60-1.30); GLOMERULAR FILTR. RATE CALC > 60 mL/min (>60); GLUCOSE,RANDOM 73 mg/dL (70-110); SODIUM SERUM 132 mmol/L (136-145); UREA NITROGEN, BLOOD 20 mg/dL (7-18)
[2025-01-04 19:03] LABS: ASPARTATE AMINOTRANSFERASE 143.0 U/L (15-37); TOTAL PROTEIN, SERUM 6.8 g/dL (6.4-8.2)
[2025-01-04 20:08] LABS: ABG BASE EXCESS -11.3 mmol/L (-2.0-3.0); ABG CARBOXYHEMOGLOBIN 0.7 % (0.5-1.5); ABG HCO3 16.3 mmol/L (21.0-28.0); ABG METHEMOGLOBIN 0.1 % (0.0-1.5); ABG OXYGEN CONTENT 15.1 mL/dL (15.0-23.0); ABG OXYGEN SATURATION 90.7 % (94.0-98.0); ABG OXYHEMOGLOBIN 90.0 % (94.0-98.0); ABG PCO2 33 mmHg (32.0-45.0); ABG PH 7.288 (7.350-7.450); ABG TOTAL HEMOGLOBIN 11.9 G/dL (12.0-16.0); FRACTIONATED INSPIRED OXYGEN 36.0 % (21-100.0); PO2, ARTERIAL BG 72.9 mmHg (83.0-108.0); SOURCE, BLOOD GAS ARTERIAL; TEMPERATURE, FAHRENHEIT, BG 99.0 FAHREN (96.0-98.6)
[2025-01-04] MEDS: DOCUSATE SODIUM 100 MG CAPSULE PO SCH (20:08)
[2025-01-04 20:09] LABS: ABG A-A DIFF O2 145.7 mmHg (10-20.0); ALLEN TEST, BLOOD GAS Positive; SITE, BLOOD GAS RT RADIAL
[2025-01-04 20:10] LABS: FLOW, BLOOD GAS 4.00 L/min (0.00-15.00); O2 DEVICE,BLOOD GAS CANNULA (ROOM AIR)
[2025-01-04] MEDS: HEPARIN SODIUM,PORCINE 5,000 UNITS/ML VIAL SQ SCH (23:17)
[2025-01-04] MEDS: ACETAMINOPHEN 325 MG TABLET PO PRN (23:26)
[2025-01-05 06:02] LABS: PLATELET COUNT (AUTO) 137 K/uL (150-450); RED BLOOD CELL COUNT(AUTO) 4.07 MIL/uL (4.00-5.20); RED CELL DISTRIBUTION WIDTH 18.7 % (11.5-14.5); WHITE BLOOD COUNT (AUTO) 14.3 K/uL (4.5-11.0)
[2025-01-05 06:11] LABS: CALCIUM, TOTAL 7.0 mg/dL (8.8-10.5); CREATININE 1.16 mg/dL (0.60-1.30); GLOMERULAR FILTR. RATE CALC 47.0 mL/min (>60); GLUCOSE,RANDOM 115.0 mg/dL (70-110); SODIUM SERUM 132.0 mmol/L (136-145); UREA NITROGEN, BLOOD 27.0 mg/dL (7-18)
[2025-01-05] MEDS: LEVOTHYROXINE SODIUM 125 MCG TABLET PO SCH (07:30)
[2025-01-05 08:00] VITALS: BP 119/68; PULSE 70; PULSE 71; RESP 27; TEMP 99.6; O2SAT 98
[2025-01-05 08:41] VITALS: TEMP 99.6
[2025-01-05] MEDS: PANTOPRAZOLE SODIUM 40 MG DR TABLET PO SCH (09:24)
[2025-01-05 12:00] VITALS: BP 120/82; PULSE 70; RESP 20; TEMP 99.8; O2SAT 100
[2025-01-05 14:47] LABS: PLATELET COUNT (AUTO) 117 K/uL (150-450); RED BLOOD CELL COUNT(AUTO) 3.79 MIL/uL (4.00-5.20); RED CELL DISTRIBUTION WIDTH 18.6 % (11.5-14.5); WHITE BLOOD COUNT (AUTO) 11.7 K/uL (4.5-11.0)
[2025-01-05] MEDS: HYDROCODONE/ACETAMINOPHEN 5-325 MG TABLET PO PRN (14:52)
[2025-01-05 14:57] LABS: CALCIUM, TOTAL 6.8 mg/dL (8.8-10.5); CREATININE 0.97 mg/dL (0.60-1.30); GLOMERULAR FILTR. RATE CALC 58.0 mL/min (>60); GLUCOSE,RANDOM 122.0 mg/dL (70-110); SODIUM SERUM 138.0 mmol/L (136-145); UREA NITROGEN, BLOOD 29.0 mg/dL (7-18)
[2025-01-05 15:22] LABS: LACTIC ACID 2.2 mmol/L (0.4-2.0)
[2025-01-05 15:26] LABS: ABG BASE EXCESS -4.1 mmol/L (-2.0-3.0); ABG CARBOXYHEMOGLOBIN 0.2 % (0.5-1.5); ABG HCO3 21.4 mmol/L (21.0-28.0); ABG METHEMOGLOBIN 0.3 % (0.0-1.5); ABG OXYGEN CONTENT 13.1 mL/dL (15.0-23.0); ABG OXYGEN SATURATION 86.6 % (94.0-98.0); ABG OXYHEMOGLOBIN 86.2 % (94.0-98.0); ABG PCO2 34 mmHg (32.0-45.0); ABG PH 7.406 (7.350-7.450); ABG TOTAL HEMOGLOBIN 10.8 G/dL (12.0-16.0); FRACTIONATED INSPIRED OXYGEN 36.0 % (21-100.0); PO2, ARTERIAL BG 58.1 mmHg (83.0-108.0); SOURCE, BLOOD GAS ARTERIAL; TEMPERATURE, FAHRENHEIT, BG 99.9 FAHREN (96.0-98.6)
[2025-01-05 15:28] LABS: ABG A-A DIFF O2 159.1 mmHg (10-20.0); ALLEN TEST, BLOOD GAS Positive; SITE, BLOOD GAS RT RADIAL
[2025-01-05 15:29] LABS: FLOW, BLOOD GAS 4.00 L/min (0.00-15.00); O2 DEVICE,BLOOD GAS CANNULA (ROOM AIR)
[2025-01-05 16:00] VITALS: BP 100/63; PULSE 70; RESP 23; TEMP 99.7; O2SAT 98
[2025-01-05 20:00] VITALS: BP 122/76; PULSE 76; RESP 26; TEMP 99.2; O2SAT 95
[2025-01-06] VITALS (12 sets, daily range): BP systolic 95–138; BP diastolic 57–89; PULSE 70–91; RESP 19–32; TEMP 97.3–99.7; O2SAT 95–100
[2025-01-06 05:36] LABS: PLATELET COUNT (AUTO) 106 K/uL (150-450); RED BLOOD CELL COUNT(AUTO) 3.52 MIL/uL (4.00-5.20); RED CELL DISTRIBUTION WIDTH 18.7 % (11.5-14.5); WHITE BLOOD COUNT (AUTO) 12.1 K/uL (4.5-11.0)
[2025-01-06 05:41] LABS: CALCIUM, TOTAL 6.9 mg/dL (8.8-10.5); CREATININE 0.85 mg/dL (0.60-1.30); GLOMERULAR FILTR. RATE CALC > 60 mL/min (>60); GLUCOSE,RANDOM 102 mg/dL (70-110); SODIUM SERUM 139 mmol/L (136-145); UREA NITROGEN, BLOOD 35 mg/dL (7-18)
[2025-01-06] MEDS ORDERED: IPRATROPIUM BROMIDE 0.5 MG/2.5 ML NEB SOLUTION NEB PRN (07:30)
[2025-01-06] MEDS: FUROSEMIDE 20 MG TABLET PO SCH (07:44)
[2025-01-06] MEDS: POTASSIUM CHLORIDE 20 MEQ ER TABLET PO PRN (07:44)
[2025-01-06] MEDS: ASPIRIN 81 MG DR TABLET PO SCH (07:44)
[2025-01-06] MEDS: ETHYL ALCOHOL 62% ANTISEPTIC NASAL SANITIZER 0.6 ML AMPUL NASAL SCH (07:45)
[2025-01-06] MEDS: GuaiFENesin SR 600 MG ER TABLET PO SCH (08:21)
[2025-01-06] MEDS: GABAPENTIN 100 MG CAPSULE PO SCH (08:21)
[2025-01-06] MEDS: BENZONATATE 100 MG CAPSULE PO SCH (08:21)
[2025-01-06] MEDS: SILDENAFIL CITRATE 20 MG TABLET NG SCH (08:21)
[2025-01-06] MEDS: BUDESONIDE 0.5 MG/2 ML NEB SOLUTION NEB SCH (10:07)
[2025-01-07] VITALS (10 sets, daily range): BP systolic 101–119; BP diastolic 61–76; PULSE 69–76; RESP 18–23; TEMP 97.3–99.4; O2SAT 92–100
[2025-01-07 05:55] LABS: PLATELET COUNT (AUTO) 98 K/uL (150-450); RED BLOOD CELL COUNT(AUTO) 3.26 MIL/uL (4.00-5.20); RED CELL DISTRIBUTION WIDTH 18.9 % (11.5-14.5); WHITE BLOOD COUNT (AUTO) 8.9 K/uL (4.5-11.0)
[2025-01-07 06:04] LABS: CALCIUM, TOTAL 7.6 mg/dL (8.8-10.5); CREATININE 0.58 mg/dL (0.60-1.30); GLOMERULAR FILTR. RATE CALC > 60 mL/min (>60); GLUCOSE,RANDOM 95 mg/dL (70-110); SODIUM SERUM 138 mmol/L (136-145); UREA NITROGEN, BLOOD 27 mg/dL (7-18)
[2025-01-07] MEDS: MORPHINE SULFATE 4 MG/ML SYRINGE IVP PRN (14:14)
[2025-01-07] MEDS: *CLINICAL-LEVOFLOXACIN ORAL DOSING CLINICAL ONE (14:55)
[2025-01-07] MEDS ORDERED: SODIUM CHLORIDE 0.9% 250 ML IV ONE (15:08)
[2025-01-07] MEDS: LEVOFLOXACIN 750 MG/D5% WATER 150 ML IV SCH (15:10)
[2025-01-08] VITALS (10 sets, daily range): BP systolic 100–120; BP diastolic 62–99; PULSE 68–76; RESP 17–19; TEMP 97.5–98.3; O2SAT 93–99
[2025-01-08] MEDS: FUROSEMIDE 20 MG/2 ML VIAL IVP SCH (09:03)
[2025-01-09] VITALS (8 sets, daily range): BP systolic 106–114; BP diastolic 64–75; PULSE 70–80; RESP 18–20; TEMP 97.5–98.1; O2SAT 96–100
[2025-01-09 06:12] LABS: PLATELET COUNT (AUTO) 91 K/uL (150-450); RED BLOOD CELL COUNT(AUTO) 3.20 MIL/uL (4.00-5.20); RED CELL DISTRIBUTION WIDTH 19.0 % (11.5-14.5); WHITE BLOOD COUNT (AUTO) 6.8 K/uL (4.5-11.0)
[2025-01-09 06:59] LABS: CALCIUM, TOTAL 7.9 mg/dL (8.8-10.5); CREATININE 0.51 mg/dL (0.60-1.30); GLOMERULAR FILTR. RATE CALC > 60 mL/min (>60); GLUCOSE,RANDOM 101 mg/dL (70-110); SODIUM SERUM 131 mmol/L (136-145); UREA NITROGEN, BLOOD 14 mg/dL (7-18)
[2025-01-09] MEDS: DIVALPROEX SODIUM 500 MG DR TABLET PO SCH (11:30)
[2025-01-09] MEDS: POTASSIUM CHLORIDE 10% 40 MEQ/30 ML LIQUID UDCUP PO ONE (12:16)
[2025-01-09] MEDS: SERTRALINE HCL 50 MG TABLET PO SCH (12:17)
[2025-01-09] MEDS: PIPERACILLIN/TAZO 3.375 GM/D5W 50 ML IV SCH (12:17)
[2025-01-09] MEDS: VANCOMYCIN 1GM/WATER(PEG/NADA) 200 ML IV ONE (14:40)
[2025-01-09] MEDS: VANCOMYCIN 1GM/WATER(PEG/NADA) 200 ML IV SCH (20:17)
[2025-01-10] VITALS (9 sets, daily range): BP systolic 97–123; BP diastolic 61–72; PULSE 71–84; RESP 18–20; TEMP 97.3–98.2; O2SAT 92–99
[2025-01-10 06:47] LABS: PLATELET COUNT (AUTO) 107 K/uL (150-450); RED BLOOD CELL COUNT(AUTO) 3.34 MIL/uL (4.00-5.20); RED CELL DISTRIBUTION WIDTH 19.4 % (11.5-14.5); WHITE BLOOD COUNT (AUTO) 7.4 K/uL (4.5-11.0)
[2025-01-10 07:21] LABS: CALCIUM, TOTAL 8.1 mg/dL (8.8-10.5); CREATININE 0.57 mg/dL (0.60-1.30); GLOMERULAR FILTR. RATE CALC > 60 mL/min (>60); GLUCOSE,RANDOM 101 mg/dL (70-110); SODIUM SERUM 131 mmol/L (136-145); UREA NITROGEN, BLOOD 13 mg/dL (7-18)
[2025-01-10] MEDS ORDERED: 0.9% SODIUM CHLORIDE 10 ML SYRINGE IVP ONE (21:27)
[2025-01-10] MEDS ORDERED: IOHEXOL 350 MG/ML 100 ML VIAL ONE (21:27)
[2025-01-10] MEDS ORDERED: SODIUM CHLORIDE 0.9% 100 ML ONE (21:27)
[2025-01-10] MEDS: FUROSEMIDE 20 MG/2 ML VIAL IVP SCH (22:18)
[2025-01-11] VITALS (10 sets, daily range): BP systolic 90–108; BP diastolic 60–75; PULSE 58–90; RESP 16–20; TEMP 97.3–98; O2SAT 93–99
[2025-01-11 07:03] LABS: PLATELET COUNT (AUTO) 123 K/uL (150-450); RED BLOOD CELL COUNT(AUTO) 3.08 MIL/uL (4.00-5.20); RED CELL DISTRIBUTION WIDTH 19.2 % (11.5-14.5); WHITE BLOOD COUNT (AUTO) 6.8 K/uL (4.5-11.0)
[2025-01-11 07:10] LABS: CALCIUM, TOTAL 7.4 mg/dL (8.8-10.5); CREATININE 0.58 mg/dL (0.60-1.30); GLOMERULAR FILTR. RATE CALC > 60 mL/min (>60); GLUCOSE,RANDOM 92 mg/dL (70-110); SODIUM SERUM 135 mmol/L (136-145); UREA NITROGEN, BLOOD 10 mg/dL (7-18)
[2025-01-11] MEDS: *CLINICAL-MEROPENEM DOSING CLINICAL ONE (11:50)
[2025-01-11] MEDS: MEROPENEM 1 GM in SODIUM CHLORIDE 0.9% 50 ML IV SCH (12:43)
[2025-01-11] MEDS: SODIUM CHLORIDE 0.9% 250 ML IV ONE (12:44)
[2025-01-11] MEDS: CLINDAMYCIN 900 MG/D5% WATER 50 ML IV SCH (16:29)
[2025-01-11] MEDS: ALBUTEROL SULFATE 2.5 MG/0.5 ML NEB SOLUTION NEB PRN (19:37)
[2025-01-11] MEDS: ZOLPIDEM TARTRATE 5 MG TABLET PO PRN (21:47)
[2025-01-12] VITALS (11 sets, daily range): BP systolic 95–129; BP diastolic 52–79; PULSE 67–77; RESP 16–18; TEMP 97.2–98.4; O2SAT 90–100
[2025-01-12 07:52] LABS: ASPARTATE AMINOTRANSFERASE 40 U/L (15-37); CALCIUM, TOTAL 7.9 mg/dL (8.8-10.5); CREATININE 0.57 mg/dL (0.60-1.30); GLOMERULAR FILTR. RATE CALC > 60 mL/min (>60); GLUCOSE,RANDOM 86 mg/dL (70-110); SODIUM SERUM 134 mmol/L (136-145); TOTAL PROTEIN, SERUM 6.0 g/dL (6.4-8.2); UREA NITROGEN, BLOOD 10 mg/dL (7-18)
[2025-01-12] MEDS: VANCOMYCIN 750 MG/WATER(PEG) 150 ML IV SCH (10:20)
[2025-01-12] MEDS: APIXABAN 5 MG TABLET PO SCH (21:48)
[2025-01-12] MEDS: TOPIRAMATE 100 MG TABLET PO SCH (21:49)
[2025-01-13] VITALS (10 sets, daily range): BP systolic 96–123; BP diastolic 62–81; PULSE 70–122; RESP 16–20; TEMP 97.5–98.1; O2SAT 93–100
[2025-01-13 06:28] LABS: PLATELET COUNT (AUTO) 129 K/uL (150-450); RED BLOOD CELL COUNT(AUTO) 3.18 MIL/uL (4.00-5.20); RED CELL DISTRIBUTION WIDTH 19.1 % (11.5-14.5); WHITE BLOOD COUNT (AUTO) 5.2 K/uL (4.5-11.0)
[2025-01-13 06:54] LABS: CALCIUM, TOTAL 8.3 mg/dL (8.8-10.5); CREATININE 0.68 mg/dL (0.60-1.30); GLOMERULAR FILTR. RATE CALC > 60 mL/min (>60); GLUCOSE,RANDOM 87 mg/dL (70-110); SODIUM SERUM 131 mmol/L (136-145); UREA NITROGEN, BLOOD 12 mg/dL (7-18)
[2025-01-13] MEDS: HYDROXYCHLOROQUINE SULFATE 200 MG TABLET PO SCH (10:03)
[2025-01-13] MEDS: CLOBETASOL 0.05% 15 GM CREAM TP ONE (10:04)
[2025-01-14] VITALS (8 sets, daily range): BP systolic 94–122; BP diastolic 64–78; PULSE 70–89; RESP 17–20; TEMP 97.7–98.8; O2SAT 95–99
[2025-01-14 07:11] LABS: CALCIUM, TOTAL 8.1 mg/dL (8.8-10.5); CREATININE 0.64 mg/dL (0.60-1.30); GLOMERULAR FILTR. RATE CALC > 60 mL/min (>60); GLUCOSE,RANDOM 84 mg/dL (70-110); SODIUM SERUM 133 mmol/L (136-145); UREA NITROGEN, BLOOD 9 mg/dL (7-18)
[2025-01-14] MEDS: POTASSIUM CHLORIDE 10 MEQ ER TABLET PO ONE (15:54)
[2025-01-15] VITALS (9 sets, daily range): BP systolic 101–112; BP diastolic 61–72; PULSE 74–90; RESP 17–22; TEMP 97.9–98.4; O2SAT 85–100
[2025-01-15 07:11] LABS: PLATELET COUNT (AUTO) 141 K/uL (150-450); RED BLOOD CELL COUNT(AUTO) 3.47 MIL/uL (4.00-5.20); RED CELL DISTRIBUTION WIDTH 19.7 % (11.5-14.5); WHITE BLOOD COUNT (AUTO) 5.4 K/uL (4.5-11.0)
[2025-01-15 07:31] LABS: ASPARTATE AMINOTRANSFERASE 22 U/L (15-37); CALCIUM, TOTAL 8.0 mg/dL (8.8-10.5); CREATININE 0.58 mg/dL (0.60-1.30); GLOMERULAR FILTR. RATE CALC > 60 mL/min (>60); GLUCOSE,RANDOM 83 mg/dL (70-110); SODIUM SERUM 133 mmol/L (136-145); TOTAL PROTEIN, SERUM 6.6 g/dL (6.4-8.2); UREA NITROGEN, BLOOD 12 mg/dL (7-18)
[2025-01-15] MEDS: VANCOMYCIN 1.25 GM/WATER(PEG) 250 ML IV SCH (09:04)
[2025-01-16 04:35] VITALS: BP 106/53; PULSE 71; RESP 18; TEMP 98.2; O2SAT 97
[2025-01-16 07:40] LABS: CALCIUM, TOTAL 8.3 mg/dL (8.8-10.5); CREATININE 0.54 mg/dL (0.60-1.30); GLOMERULAR FILTR. RATE CALC > 60 mL/min (>60); GLUCOSE,RANDOM 85 mg/dL (70-110); SODIUM SERUM 135 mmol/L (136-145); UREA NITROGEN, BLOOD 11 mg/dL (7-18)
[2025-01-16 08:31] VITALS: PULSE 70; RESP 18; O2SAT 94
[2025-01-16 08:46] VITALS: PULSE 71; RESP 18; O2SAT 99
[2025-01-16 08:51] VITALS: BP 105/64; PULSE 72; RESP 18; TEMP 97.7; O2SAT 94
[2025-01-16 15:33] VITALS: BP 93/63; PULSE 71; RESP 18; TEMP 97.7; O2SAT 94
[2025-01-16 21:30] VITALS: BP 103/66; PULSE 87; RESP 18; TEMP 97.9; O2SAT 94
[2025-01-17 08:34] VITALS: BP 104/68; PULSE 69; RESP 18; O2SAT 95
[2025-01-17] MEDS ORDERED: SODIUM CHLORIDE 0.9% 500 ML IV ONE (10:23)
[2025-01-17 19:29] VITALS: BP 107/59; PULSE 72; RESP 18; TEMP 98.1; O2SAT 94
[2025-01-18] VITALS (7 sets, daily range): BP systolic 95–110; BP diastolic 59–78; PULSE 64–75; RESP 18–20; TEMP 97.9–98.6; O2SAT 92–97
[2025-01-18 07:36] LABS: CALCIUM, TOTAL 8.2 mg/dL (8.8-10.5); CREATININE 0.58 mg/dL (0.60-1.30); GLOMERULAR FILTR. RATE CALC > 60 mL/min (>60); GLUCOSE,RANDOM 91 mg/dL (70-110); SODIUM SERUM 133 mmol/L (136-145); UREA NITROGEN, BLOOD 14 mg/dL (7-18)
[2025-01-18] MEDS: OMEPRAZOLE 20 MG CAPSULE PO SCH (13:04)
[2025-01-18] MEDS ORDERED: BENZ-227 PO (17:00)
[2025-01-18] MEDS ORDERED: BUDE0.5A NEB (17:01)
[2025-01-18] MEDS ORDERED: FURO20TA5 PO (17:03)
[2025-01-18] MEDS ORDERED: GUAIF600 PO (17:05)
[2025-01-18] MEDS ORDERED: PANT-31 PO (17:08)
[2025-01-18] MEDS ORDERED: VANC1.257 IVPB (17:12)
[2025-01-18] MEDS ORDERED: ACET-2247 PO (17:13)
[2025-01-18] MEDS ORDERED: ALBU2.5V39 NEB (17:13)
[2025-01-18] MEDS ORDERED: IPRA0.2S49 NEB (17:14)
[2025-01-18] MEDS ORDERED: HYDR-4808 PO (17:14)
[2025-01-18] MEDS: ZOLPIDEM TARTRATE 5 MG TABLET PO PRN (21:31)
[2025-01-19 06:00] VITALS: BP 119/73; PULSE 74; RESP 18; TEMP 97.9; O2SAT 95
[2025-01-19 07:40] VITALS: BP 106/66; PULSE 70; RESP 18; TEMP 98.4; O2SAT 98
[2025-01-19 10:35] VITALS: PULSE 73; RESP 16; O2SAT 98
[2025-01-19 15:33] VITALS: BP 103/65; PULSE 74; RESP 18; TEMP 97.7; O2SAT 97
== END 2025-01-19 17:14 | DRG 917 ==
LOC: EMS 13:53 → EDH 15:11 → ICU 01-05 08:01 → 5S 01-07 16:04 → 4E 01-14 01:27
PROVIDERS: ADMIT Internal Medicine; ATTEND Internal Medicine
DX: T43.592A Poisoning by other antipsychotics and neuroleptics, intentional self-harm, initial encounter (principal); G92.8 Other toxic encephalopathy; J18.9 Pneumonia, unspecified organism; J96.01 Acute respiratory failure with hypoxia; I50.33 Acute on chronic diastolic (congestive) heart failure; I27.29 Other secondary pulmonary hypertension; I11.0 Hypertensive heart disease with heart failure; D69.6 Thrombocytopenia, unspecified; J44.0 Chronic obstructive pulmonary disease with (acute) lower respiratory infection; L03.114 Cellulitis of left upper limb; F32.2 Major depressive disorder, single episode, severe without psychotic features; R56.9 Unspecified convulsions; E03.9 Hypothyroidism, unspecified; M06.9 Rheumatoid arthritis, unspecified; K70.30 Alcoholic cirrhosis of liver without ascites; F10.229 Alcohol dependence with intoxication, unspecified; F25.0 Schizoaffective disorder, bipolar type; M79.622 Pain in left upper arm; M79.89 Other specified soft tissue disorders; Y90.5 Blood alcohol level of 100-119 mg/100 ml; I95.9 Hypotension, unspecified; M60.9 Myositis, unspecified; E87.6 Hypokalemia; I48.0 Paroxysmal atrial fibrillation; Z79.01 Long term (current) use of anticoagulants; Z79.624 Long term (current) use of inhibitors of nucleotide synthesis; Z79.899 Other long term (current) drug therapy; Z91.51 Personal history of suicidal behavior; Z95.0 Presence of cardiac pacemaker; Z86.73 Personal history of transient ischemic attack (TIA), and cerebral infarction without residual deficits; Y92.89 Other specified places as the place of occurrence of the external cause
CPT/HCPCS: 51702; 71045; 73201; 76881; 80048; 80053; 80076; 80178; 80202; 80307; 81001; 82550; 82805; 83605; 83690; 83735; 83880; 84132; 84484; 85025; 85610; 85730; 86140; 87040; 87081; 93005; 93306; 93971; 94640; 97116; 97162; 97530; 99291; G0378; G0480; G0481; J1938; J1956; J2060; J2185; J2270; J2405; J2543; J3411; J3475; J3480; J3490; J7030; J7040; J7050; J7517; 36415-L1; 36415-TC; J7613